=== PATIENT | male | born 1995 | race Caucasian/White ===

== ENCOUNTER 2017-06-24 14:01 | Emergency (ER) | payer MEDICAID ==
[~2017-06-24] VITALS: Ht 175.3 cm; Wt 93.0 kg
[2017-06-24 14:09] VITALS: BP 133/77
--- NOTE | 2017-06-24 14:12 | NUR ---
PT SENT TO LOBBY TO WAIT FOR ED BED, ACCOMPANIED BY FATHER.
--- NOTE | 2017-06-24 14:37 | NUR ---
Patient to bed 1. RN evaluating patient at bedside.
--- NOTE | 2017-06-24 14:39 | NUR ---
22/M BIB SELF C/O N/V & epigastric pain x3 days. SKIN IS PINK/WARM/DRY; AAOX4 WITH EVEN AND STEADY GAIT; LUNGS CLEAR BL; HR EVEN AND REGULAR; PT DENIES ANY FEVER, CP, SOB, OR COUGH AT THIS TIME; PATIENT STATES PAIN OF 7/10 AT THIS TIME; VSS; PATIENT POSITIONED FOR COMFORT; HOB ELEVATED; BEDRAILS UP X2; BED DOWN. ER MD MADE AWARE OF PT STATUS.
[2017-06-24] MEDS ORDERED: DICYCLOMINE HCL LIQUID 20 MG, ALUMINUM HYD/MAG/SIMETHICONE 30 ML, LIDOCAINE VISCOUS 2% ... PO ONE ×3 (15:00)
[2017-06-24] MEDS ORDERED: ONDANSETRON 4 MG ODT PO ONE (15:20)
--- NOTE | 2017-06-24 15:42 | NUR ---
LAB AT BEDSIDE.
[2017-06-24] MEDS ORDERED: NACL 0.9% 1,000 ML IV ONE (16:00)
[2017-06-24] MEDS ORDERED: KETOROLAC 30 MG/ML VIAL IVP ONE (16:00)
[2017-06-24] MEDS ORDERED: ONDANSETRON 4 MG/2 ML VIAL IVP ONE (16:00)
--- NOTE | 2017-06-24 16:11 | NUR ---
PT TAKEN TO [facility] VIA W/C ACCOMPANIED BY [facility].
[2017-06-24 16:12] LABS: ANION GAP 13.6 (8-16); CARBON DIOXIDE 28.7 mmol/L (21-32); CREATININE 0.9 mg/dL (0.7-1.3); POTASSIUM 3.3 mmol/L (3.5-5.1)
[2017-06-24 16:13] LABS: HEMATOCRIT 47.8 % (36-52); HEMOGLOBIN 15.9 g/dL (12.0-18.0); LYMPHOCYTES # (AUTO) 2.4 K/uL (2.0-11.5); LYMPHOCYTES % (AUTO) 21.6 % (20.5-51.1); MEAN CORPUSCULAR HEMOGLOBIN 27 pg (27-31); MEAN CORPUSCULAR HGB CONC 33 g/dL (33-37); MONOCYTES # (AUTO) 0.6 K/uL (0.8-1.0); MONOCYTES % (AUTO) 5.5 % (1.7-9.3); NEUTROPHILS % (AUTO) 72.9 % (42.2-75.2); PLATELET COUNT (AUTO) 413 K/uL (140-450); RED BLOOD CELL COUNT(AUTO) 5.97 MIL/uL (4.20-6.10); RED CELL DISTRIBUTION WIDTH 15.5 % (11.6-13.7)
[2017-06-24 16:22] LABS: ALBUMIN 4.2 g/dL (3.4-5.0); TOTAL BILIRUBIN 0.9 mg/dL (0.0-1.0)
--- NOTE | 2017-06-24 16:26 | NUR ---
PT RETURNED FROM [facility] VIA W/C ACCOMPANIED BY SHUTTLE REPAIRER.
[2017-06-24 17:49] VITALS: BP 113/60
--- NOTE | 2017-06-24 17:49 | NUR ---
Patient discharged with v/s stable. Written and verbal after care instructions given and explained. Patient alert, oriented and verbalized understanding of instructions. Ambulatory with steady gait. All questions addressed prior to discharge. ID band removed. Patient advised to follow up with PMD. Rx of MIRALAX & ZOFRAN ODT given. Patient educated on indication of medication including possible reaction and side effects. Opportunity to ask questions provided and answered.
== END 2017-06-24 17:49 | disposition home or self-care (01) ==
LOC: MED 14:01
DX: R11.2 Nausea with vomiting, unspecified (principal); K59.00 Constipation, unspecified; F12.90 Cannabis use, unspecified, uncomplicated; R10.13 Epigastric pain
CPT/HCPCS: 36415; 74022; 80053; 83690; 85025; 96361; 96374; 96375; 99285; J1885; J2405; J7030; S0119

== ENCOUNTER 2017-07-19 14:49 | Emergency (ER) | payer MEDICAID ==
[~2017-07-19] VITALS: Ht 177.8 cm; Wt 90.7 kg
[2017-07-19 14:53] VITALS: BP 141/84
--- NOTE | 2017-07-19 15:01 | NUR ---
PT AMBULATES TO ER BED 4
[2017-07-19] MEDS ORDERED: ONDANSETRON 4 MG ODT PO ONE (15:05)
[2017-07-19] MEDS ORDERED: FAMOTIDINE 20 MG TAB PO ONE (15:05)
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
[2017-07-19] MEDS ORDERED: METOCLOPRAMIDE 10 MG/2 ML INJ VIAL IM ONE (15:35)
[2017-07-19 17:10] VITALS: BP 137/81
--- NOTE | 2017-07-19 17:10 | NUR ---
patient provided with bus pass
== END 2017-07-19 17:10 | disposition home or self-care (01) ==
LOC: MED 14:49
DX: K29.70 Gastritis, unspecified, without bleeding (principal); K21.9 Gastro-esophageal reflux disease without esophagitis; R06.02 Shortness of breath; F12.10 Cannabis abuse, uncomplicated; F19.10 Other psychoactive substance abuse, uncomplicated
CPT/HCPCS: 96372; 99283; J2765; S0119

== ENCOUNTER 2018-03-31 22:28 | Emergency (ER) | payer MEDICAID, OTHER ==
[~2018-03-31] VITALS: Ht 177.8 cm; Wt 68.0 kg
[2018-03-31 22:36] VITALS: BP 129/78
--- NOTE | 2018-03-31 23:57 | NUR ---
PT TAKEN TO BED 4
--- NOTE | 2018-04-01 00:10 | NUR ---
Pt was presents to ED with complaints of foot pain, denies injury or trauma. Pt arousable to verbal stimuli. Pt denies any ETOH or drug use. AOX4, delayed speech. VSS. NAD noted. Pt asking to sleep.
--- NOTE | 2018-04-01 01:00 | NUR ---
Patient appears to be resting comfortably in bed. Vital Signs within normal limits. Respirations even and unlabored.
--- NOTE | 2018-04-01 04:17 | NUR ---
Patient appears to be resting comfortably in bed. Vital Signs within normal limits. Respirations even and unlabored.
--- NOTE | 2018-04-01 05:47 | NUR ---
Pt still has not been seen by ERMD. Dr. Mckenzie made aware that pt is waiting for an evaluation. Pt is calm and relaxed, sleeping, VSS. NAD noted.
--- NOTE | 2018-04-01 06:07 | NUR ---
Dr. Mckenzie evaluating patient at bedside.
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
[2018-04-01 06:52] VITALS: BP 118/63
--- NOTE | 2018-04-01 06:52 | NUR ---
Patient discharged with v/s stable. Written and verbal after care instructions given and explained. Patient verbalized understanding. Ambulatory with steady gait. All questions addressed prior to discharge. Advised to follow up with PMD. Bus pass provided for transportation.
== END 2018-04-01 06:52 | disposition home or self-care (01) ==
LOC: MED 22:28
DX: R41.82 Altered mental status, unspecified (principal); R53.83 Other fatigue; Z59.0 Homelessness
CPT/HCPCS: 99283

== ENCOUNTER 2019-07-01 19:15 | Emergency (ER) | payer BC, OTHER ==
[~2019-07-01] VITALS: Ht 167.6 cm; Wt 59.4 kg
[2019-07-01 19:17] VITALS: BP 141/70
--- NOTE | 2019-07-01 19:17 | NUR ---
BIBA TO BED 01.
[2019-07-01] MEDS ORDERED: IBUPROFEN 600 MG TAB PO ONE (19:20)
[2019-07-01 19:21] VITALS: BP 141/70
--- NOTE | 2019-07-01 19:29 | NUR ---
PT SCREAMING AND REMOVING CLOTHING. INSTRUCTED PT TO KEEP CLOTHING ON -- PT COMPLIED. STATES "[place]" AND LEFT FACILITY AMBULATORY WITH STEADY GAIT.
--- NOTE | 2019-07-01 19:30 | NUR ---
PATIENT ELOPED FROM FACILITY. DISCHARGE INSTRUCTIONS NOT GIVEN TO PATIENT. DR. EDGE NOTIFIED.
== END 2019-07-01 19:30 | disposition left against medical advice (07) ==
LOC: MED 19:15
DX: M79.671 Pain in right foot (principal); F19.10 Other psychoactive substance abuse, uncomplicated; F15.129 Other stimulant abuse with intoxication, unspecified; Z53.21 Procedure and treatment not carried out due to patient leaving prior to being seen by health care provider

== ENCOUNTER 2019-09-06 16:56 | Emergency (ER) | payer BC, SELFPAY ==
[~2019-09-06] VITALS: Ht 172.7 cm; Wt 63.5 kg
[2019-09-06 16:56] VITALS: BP 106/59
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
--- NOTE | 2019-09-06 17:19 | NUR ---
Spoke with Jake from poison control. Recommendations: watch for QRS abnormalities, EKG monitoring Q 4 hours for the first 8-10 hours. QRS widening above 120- tx sodium bicarb 1-2 amps; seizure precautions, can cause hypotension- tx IV fluids and pressors as needed. Lab draw: tylenol, acetaminophen, salicylates, blood alcohol, UDS.
[2019-09-06] MEDS ORDERED: IBUPROFEN 600 MG TAB PO ONE (17:20)
[2019-09-06] MEDS ORDERED: FLUTICASONE NASAL 50 MCG/ACTUATION 16 GM BTL NS ONE (17:20)
--- NOTE | 2019-09-06 17:26 | NUR ---
PATIENT MOVED VIA GURNEY TO ER BED 7 AT THIS TIME.
--- NOTE | 2019-09-06 19:00 | NUR ---
PD AT BEDSIDE. PT PLACED ON 51/50 HOLD FOR SI.
--- NOTE | 2019-09-06 19:18 | NUR ---
RECEIVED REPORT FROM JJ FLORES FOR CONTINUITY OF CARE.
[2019-09-06 19:24] LABS: BASOPHILS # (AUTO) 0.1 K/uL (0.00-0.22); BASOPHILS % (AUTO) 1.6 % (0.0-2.0); EOSINOPHILS # (AUTO) 0.4 K/uL (0-0.4); EOSINOPHILS % (AUTO) 7.7 % (0.0-4.0); HEMOGLOBIN 13.6 g/dL (12.0-18.0); LYMPHOCYTES # (AUTO) 2.5 K/uL (2.0-11.5); LYMPHOCYTES % (AUTO) 42.4 % (20.5-51.1); MEAN CORPUSCULAR HEMOGLOBIN 28 pg (27-31); MEAN CORPUSCULAR HGB CONC 33 g/dL (33-37); MEAN CORPUSCULAR VOLUME 85.5 fL (80-94); MONOCYTES # (AUTO) 0.3 K/uL (0.8-1.0); MONOCYTES % (AUTO) 5.5 % (1.7-9.3); NEUTROPHILS # (AUTO) 2.5 K/uL (1.8-7.7); NEUTROPHILS % (AUTO) 42.8 % (42.2-75.2); PLATELET COUNT (AUTO) 326 K/uL (140-450); RED CELL DISTRIBUTION WIDTH 14.4 % (11.6-13.7); WHITE BLOOD COUNT (AUTO) 5.8 K/uL (4.8-10.8)
[2019-09-06 19:42] LABS: ALBUMIN 3.5 g/dL (3.4-5.0); ANION GAP 14.1 (8-16); ASPARTATE AMINOTRANSFERASE 18 U/L (15-37); CARBON DIOXIDE 24.8 mmol/L (21-32); CHLORIDE 107 mmol/L (98-107); CREATININE 0.9 mg/dL (0.6-1.3); GFR ARICAN-AMERICAN 131 mL/min (>90); GLUCOSE 91 mg/dL (74-106); POTASSIUM 3.9 mmol/L (3.5-5.1); SODIUM SERUM 142 mmol/L (136-145); TOTAL BILIRUBIN 0.3 mg/dL (0.0-1.0); UREA NITROGEN, BLOOD 11 mg/dL (7-18)
[2019-09-06 19:43] LABS: SALICYLATE < 2.8 mg/dL (2.8-20.0)
[2019-09-06 19:45] LABS: ACETAMINOPHEN < 0.5 ug/ml (10-30)
--- NOTE | 2019-09-06 19:47 | NUR ---
PT REQUESTING WATER, WATER PROVIDED. PT TOLERATED WELL.
--- NOTE | 2019-09-06 20:41 | NUR ---
SPOKE WITH TAYLOR FROM [employer] [facility]. RECCOMMENDATIONS CONTINUE CARDIAC MONITORING AND EKG MONITORING FOR EXTENDED RELEASE.
--- NOTE | 2019-09-06 21:21 | NUR ---
VSS. PT AROUSABLE TO NAME. RESTING IN BED. RESPIRATIONS EVEN AND UNLABORED. WILL CONTINUE TO MONITOR.
--- NOTE | 2019-09-06 22:11 | NUR ---
PT AMBULATED TO RESTROOM, ACCOMPANIED BY RN. STEADY GAIT. AMBULATED BACK TO BED 7. STEADY GAIT. 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 WILL CONTINUE TO MONITOR.
[2019-09-06 22:46] LABS: APPEARANCE,URINE CLEAR (CLEAR); BILIRUBIN,URINE NEGATIVE (NEGATIVE); BLOOD, URINE NEGATIVE (NEGATIVE); COLOR,URINE YELLOW (YELLOW); LEUKOCYTE ESTERASE ,URINE NEGATIVE (NEGATIVE); NITRITE, URINE NEGATIVE (NEGATIVE); PH,URINE 5.5 (5.0-9.0); UGLUCOSE NEGATIVE (NEGATIVE)
[2019-09-06 23:18] LABS: BARBITURATE, URINE NEGATIVE ng/ml (NEG <=200); BENZODIAZEPINE, URINE NEGATIVE ng/mL (NEG <=200); CANNABINOID, URINE NEGATIVE ng/mL (NEG <=50); COCAINE, URINE NEGATIVE ng/mL (NEG <=300); OPIATE, URINE NEGATIVE ng/mL (NEG <=2000); PHENCYCLIDINE SCREEN,URINE NEGATIVE ng/mL (NEG <=25)
--- NOTE | 2019-09-07 00:15 | NUR ---
PT SEEN WITH EYES CLOSED. VISIBLE CHEST RISE AND FALL NOTED. 1:[address] BEDRAIL X2 UP. BED IN LOWEST POSTION. WILL CONTINUE TO MONITOR.
--- NOTE | 2019-09-07 00:57 | NUR ---
EKG PERFORMED AT BEDSIDE. SINUS BRADYCARDIA 53 BPM. EKG READS ACUTE IL. DR GARDNER AT BEDSIDE, NO ACTIVE IL AT THIS TIME. WILL CONTINUE TO MONITOR.
--- NOTE | 2019-09-07 02:05 | NUR ---
PT MOVED TO BED #6
--- NOTE | 2019-09-07 03:27 | NUR ---
PT REFUSED EKG, ERMD AWARE.
--- NOTE | 2019-09-07 04:09 | NUR ---
PT RESTING IN BED, EYES CLOSED, RESPIRATIONS EVEN AND UNLABORED. CHEST RISE IS SYMMETRICAL. 1:1 MONITORING. VSS. WILL CONTINUE TO MONITOR.
--- NOTE | 2019-09-07 06:22 | NUR ---
PT RESTING IN BED, EYES CLOSED, RESPIRATIONS EVEN AND UNLABORED. CHEST RISE IS SYMMETRICAL. 1:1 MONITORING. VSS. WILL CONTINUE TO MONITOR.
--- NOTE | 2019-09-07 07:16 | NUR ---
REPORT GIVEN TO SANDRA PADILLA FOR CONTINUED CARE. PT IN STABLE CONDITION
--- NOTE | 2019-09-07 07:16 | NUR ---
OBTAINED REPORT FROM PRAVEEN FLORES FOR CONTINUITY OF CARE
--- NOTE | 2019-09-07 08:45 | NUR ---
POISON CONTROL CALLED TO FOLLOW UP ON PATIENT SPOKE TO CLOSING AGENT MAY ; STATIONED FROM [place] ANY QUESTIONS OR CONCERNS PHONE: [phone]
--- NOTE | 2019-09-07 08:46 | NUR ---
PT RESTING IN BED, SIDE RAIL X2. VSS
--- NOTE | 2019-09-07 09:34 | NUR ---
PT RESTING IN BED, SIDE RAIL X2. VSS
--- NOTE | 2019-09-07 09:42 | NUR ---
Received report from night time nanny. Pack[facility] facilities[facility]
--- NOTE | 2019-09-07 10:15 | NUR ---
COVID SWAB OBTAINED, TAKEN TO LAB
--- NOTE | 2019-09-07 10:42 | NUR ---
PT RESTING IN BED, SIDE RAIL X2. VSS
--- NOTE | 2019-09-07 11:34 | NUR ---
Telepsychiatry consultation ordered as requested by Dr. Mcgowan.
--- NOTE | 2019-09-07 12:10 | NUR ---
PER TELE PSYCH PSYCHIATRIST TO CONTINUE CARE AND KEEP PT ON 5150 HOLD. PER PSYCHIATRIST TO SEND REPORT TO ER FACILITY.
--- NOTE | 2019-09-07 12:30 | NUR ---
PT REFUSED VSS ; REFUSED BEING ON MONITOR
--- NOTE | 2019-09-07 12:34 | NUR ---
PT PROVIDED WITH FOOD TRAY
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
--- NOTE | 2019-09-07 15:12 | NUR ---
PT RESTING IN BED, SIDE RAIL X2. CALM, COOPERATIVE, NON COMBATIVE.
--- NOTE | 2019-09-07 15:12 | NUR ---
PT PROVIDED WITH MILK AND CRACKERS
--- NOTE | 2019-09-07 16:57 | NUR ---
PT RESTING IN BED, SIDE RAIL X2. CALM. REFUSED VS.
--- NOTE | 2019-09-07 19:16 | NUR ---
REPORT RECEIVED FROM SANDRA PADILLA FOR CONTINUATION OF CARE.
--- NOTE | 2019-09-07 19:18 | NUR ---
REPORT GIVEN TO NILAM FLORES FOR CONTINUITY OF CARE
--- NOTE | 2019-09-07 19:31 | NUR ---
PT RESTING IN BED, LOCKED AND IN LOWEST POSITION ,HOB ELEVATED , SIDE RAILS X [address]IONS IN PL[address] FOR PT SAFETY. VISIBLE RISE AND FALL OF CHEST, RR EVEN AND UNLABORED.
--- NOTE | 2019-09-07 23:53 | NUR ---
PT SLEEPING IN BED, LOCKED AND IN LOWEST POSITION ,HOB ELEVATED , SIDE RAILS X [address]UTIONS IN PLACE FOR PT SAFETY. AROUSABLE BY VERBAL STIMULATION, VISIBLE RISE AND FALL OF CHEST, RR EVEN AND UNLABORED.
--- NOTE | 2019-09-08 03:40 | NUR ---
RECEIVED NEGATIVE COVID RESULT FROM LAB. REPROT GIVEN TO INFECTION CONTROL.
--- NOTE | 2019-09-08 06:05 | NUR ---
[facility] called regarding patient and faxed over result of Covid. Will endorse to next shift to continue assisting with bed placement
--- NOTE | 2019-09-08 07:25 | NUR ---
REPORT GIVEN TO SANDRA MINER FOR TRANSFER OF CARE.
--- NOTE | 2019-09-08 08:16 | NUR ---
Dietary called for patients breakfast tray.
--- NOTE | 2019-09-08 08:37 | NUR ---
PT RESTING IN BED, NAD, CALM & COOPERATIVE
--- NOTE | 2019-09-08 12:28 | NUR ---
PT EATING LUNCH IN BED, 1:1 SITTER AT BEDSIDE FOR SI PRECAUTIONS
--- NOTE | 2019-09-08 13:27 | NUR ---
DR. HERNANDEZ AT BEDSIDE. HE IS REMOVING THE 5150 HOLD AND OKAY TO DISCHARGE PEOPLE HOME. DR. AMAYA AWARE. SECURITY CALLED FOR PATIENT BELONGINGS.
[2019-09-08 13:37] VITALS: BP 112/60
--- NOTE | 2019-09-08 13:38 | NUR ---
[facility] meal provided for patient to take after discharge.
== END 2019-09-08 13:37 | disposition home or self-care (01) ==
LOC: EEVIPCON 16:56 → MED 16:56
DX: T65.92XA Toxic effect of unspecified substance, intentional self-harm, initial encounter (principal); Z20.828 Contact with and (suspected) exposure to other viral communicable diseases; R09.81 Nasal congestion; M79.671 Pain in right foot; F41.9 Anxiety disorder, unspecified; F12.10 Cannabis abuse, uncomplicated; F31.9 Bipolar disorder, unspecified; Y92.89 Other specified places as the place of occurrence of the external cause
CPT/HCPCS: 36415; 73630; 80053; 80305; 81003; 85025; 93005; 99285; G0480; G0482; Q0092; U0003

== ENCOUNTER 2019-09-11 01:45 | Emergency (ER) | payer BC, SELFPAY ==
[~2019-09-11] VITALS: Ht 175.3 cm; Wt 68.0 kg
[2019-09-11 01:49] VITALS: BP 150/94
[2019-09-11] MEDS ORDERED: ZIPRASIDONE MESYLATE 20 MG/ML VIAL IM ONE ×2 (01:57→02:00)
[2019-09-11] MEDS ORDERED: WATER STERILE 10 ML MC ONE (01:58)
[2019-09-11 02:55] LABS: BASOPHILS # (AUTO) 0.1 K/uL (0.00-0.22); BASOPHILS % (AUTO) 0.7 % (0.0-2.0); EOSINOPHILS % (AUTO) 0.5 % (0.0-4.0); HEMATOCRIT 42.3 % (36-52); HEMOGLOBIN 14.5 g/dL (12.0-18.0); LYMPHOCYTES # (AUTO) 1.9 K/uL (2.0-11.5); LYMPHOCYTES % (AUTO) 24.5 % (20.5-51.1); MEAN CORPUSCULAR HEMOGLOBIN 29 pg (27-31); MEAN CORPUSCULAR HGB CONC 34 g/dL (33-37); MEAN CORPUSCULAR VOLUME 84.5 fL (80-94); MONOCYTES # (AUTO) 0.7 K/uL (0.8-1.0); MONOCYTES % (AUTO) 9.1 % (1.7-9.3); NEUTROPHILS # (AUTO) 5.2 K/uL (1.8-7.7); NEUTROPHILS % (AUTO) 65.2 % (42.2-75.2); PLATELET COUNT (AUTO) 341 K/uL (140-450); RED BLOOD CELL COUNT(AUTO) 5.01 MIL/uL (4.20-6.10); RED CELL DISTRIBUTION WIDTH 14.6 % (11.6-13.7); WHITE BLOOD COUNT (AUTO) 7.9 K/uL (4.8-10.8)
[2019-09-11 03:08] LABS: ALBUMIN 4.1 g/dL (3.4-5.0); ANION GAP 15.8 (8-16); ASPARTATE AMINOTRANSFERASE 25 U/L (15-37); CHLORIDE 109 mmol/L (98-107); CREATININE 0.9 mg/dL (0.6-1.3); GFR ARICAN-AMERICAN 131 mL/min (>90); GLUCOSE 100 mg/dL (74-106); SODIUM SERUM 147 mmol/L (136-145); TOTAL BILIRUBIN 0.4 mg/dL (0.0-1.0); UREA NITROGEN, BLOOD 15 mg/dL (7-18)
[2019-09-11 03:14] LABS: POTASSIUM 2.8 mmol/L (3.5-5.1)
[2019-09-11 03:15] LABS: ACETAMINOPHEN < 0.5 ug/ml (10-30); SALICYLATE < 2.8 mg/dL (2.8-20.0)
[2019-09-11] MEDS ORDERED: POTASSIUM CHLORIDE 10 MEQ TABER PO ONE (07:45)
[2019-09-11 08:17] VITALS: BP 128/63
== END 2019-09-11 08:15 | disposition home or self-care (01) ==
LOC: MED 01:45
DX: R41.82 Altered mental status, unspecified (principal); E87.6 Hypokalemia; F15.90 Other stimulant use, unspecified, uncomplicated; Z88.5 Allergy status to narcotic agent
CPT/HCPCS: 36415; 80053; 85025; 96372; 99283; G0480; G0482; J3486

== ENCOUNTER 2019-09-12 00:15 | Emergency (ER) | payer BC, SELFPAY ==
[~2019-09-12] VITALS: Ht 175.3 cm; Wt 72.6 kg
[2019-09-12 00:15] VITALS: BP 119/75
[2019-09-12 04:42] VITALS: BP 115/84
== END 2019-09-12 06:00 | disposition left against medical advice (07) ==
LOC: MED 00:15
DX: R41.82 Altered mental status, unspecified (principal); Z88.8 Allergy status to other drugs, medicaments and biological substances
CPT/HCPCS: 99281; 99283

== ENCOUNTER 2019-09-25 22:36 | Emergency (ER) | payer BC, SELFPAY ==
[~2019-09-25] VITALS: Ht 177.8 cm; Wt 72.6 kg
--- NOTE | 2019-09-25 22:38 | NUR ---
PT TAKEN TO BED 9 VIA GURNEY WITH ASSIST FROM EMS.
[2019-09-25 22:43] VITALS: BP 126/72
--- NOTE | 2019-09-25 22:45 | NUR ---
LWBS. WALKED OUT OF ER. VSS.
[2019-09-25 22:47] VITALS: BP 126/72
== END 2019-09-25 22:45 | disposition left against medical advice (07) ==
LOC: MED 22:36
DX: M79.673 Pain in unspecified foot (principal); Z53.21 Procedure and treatment not carried out due to patient leaving prior to being seen by health care provider

== ENCOUNTER 2019-10-08 21:46 | Emergency (ER) | payer BC, SELFPAY ==
[~2019-10-08] VITALS: Ht 172.7 cm; Wt 63.5 kg
[2019-10-08 21:50] VITALS: BP 136/86
== END 2019-10-08 22:40 | disposition left against medical advice (07) ==
LOC: MED 21:46
DX: Z53.21 Procedure and treatment not carried out due to patient leaving prior to being seen by health care provider (principal)

== ENCOUNTER 2020-03-12 15:30 | Emergency (ER) | payer BC, SELFPAY ==
[~2020-03-12] VITALS: Ht 175.3 cm; Wt 68.0 kg
[2020-03-12] MEDS ORDERED: ZIPRASIDONE MESYLATE 20 MG/ML VIAL IM ONE (15:35)
[2020-03-12] MEDS ORDERED: LORazepam 2 MG/ML VIAL IM ONE (15:35)
[2020-03-12 15:40] VITALS: BP 164/89
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
--- NOTE | 2020-03-12 16:00 | NUR ---
PT WAS ABLE TO AMBULATE TO THE RESTROOM WITH ASSISTANCE. PT HAD A BM. AND PLACED BACK IN BED.
--- NOTE | 2020-03-12 16:15 | NUR ---
medicated per Dr. anand.
[2020-03-12] MEDS ORDERED: AMMONIA AROMATIC 1 INHL INH ONE (18:56)
--- NOTE | 2020-03-12 19:19 | NUR ---
PT SLEEPING AT THIS TIME, REMAINS ON BEDSIDE MONITOR. RESPIRATIONS REGULAR EVENA AND UNLABORED.
--- NOTE | 2020-03-12 19:19 | NUR ---
RECEIVED REPORT FROM LEIA FLORES
--- NOTE | 2020-03-12 20:40 | NUR ---
PT PROVIDED WITH SANDWICH AND JUICE UPON DISCHARGE. HAD TO BE ESCORTED OUT BY SECURITY
--- NOTE | 2020-03-12 20:40 | NUR ---
Patient discharged with v/s stable. Written and verbal after care instructions given and explained. Patient verbalized understanding. Ambulatory with steady gait. All questions addressed prior to discharge. Advised to follow up with PMD. PT REFUSED TO SIGN D/C PAPERWORK
[2020-03-12 20:41] VITALS: BP 104/51
== END 2020-03-12 20:41 | disposition home or self-care (01) ==
LOC: MED 15:30
DX: F29 Unspecified psychosis not due to a substance or known physiological condition (principal); F15.10 Other stimulant abuse, uncomplicated; Z88.8 Allergy status to other drugs, medicaments and biological substances
CPT/HCPCS: 96372; 99284; J2060; J3486